=== PATIENT | female | born 2000 | race Hispanic/Latino ===

== ENCOUNTER 2022-12-30 14:00 | Emergency (ER) | payer OTHER ==
--- OUTSIDE RECORDS SUMMARY | 2022-12-30 14:03 | XMS REPORT | Continuity of Care Document ---
:2000 Author Organization [facility] t Address [address] [place] [address] Care Team Providers Name Role Phone Unavailable Unavailable Unavailable Problems This patient has no known problems. Allergies, Adverse Reactions, Alerts This patient has no known allergies or adverse reactions. Medications This patient has no known medications. Procedures This patient has no known procedures. Encounters Start End Encounter Admission Attending Care Care Encounter Source Date/Time Date/Time Type Type Clinicians Facility Department ID 2022-11-28 2022-11-28 Outpatient [facility] 16:32:03 16:32:03 [id number] [facility] 2022-10-31 2022-10-31 Outpatient [facility] 14:11:48 14:11:48 [id number] [facility] 2022-10-12 2022-10-12 Outpatient [facility] 15:33:53 15:33:53 [id number] [facility] 2022-09-25 2022-09-25 Outpatient [facility] 16:38:32 16:38:32 [id number] [facility] 2022-07-17 2022-07-17 Outpatient [facility] Rod 16:53:16 16:53:16 [id number] [facility] Results Test Description Test Time Test Comments Results Result Comments Source HERPES SIMPLEX AB, IgM 2022-12-03 13:01:12 Test Item Value Reference Range Interpretation Comme nts HERPES SIMPLEX AB, IgM (test 0.83 INDEX SEE BELOW INTERPRETATION UNITS RANGE code = 70403) ----- ----- NEGATIVE INDEX <=0.89 EQUIVOCAL INDEX 0.90-1.09 POSITIVE INDEX >=1.10 VAGINAL PATHOGENS DNA [id number] 17:00:01 Test Item Value Reference Range Interpretation Comments LYNNE SPECIES POSITIVE NEGATIVE A (test code = ) G. VAGINALIS POSITIVE NEGATIVE A (test code = ) T. VAGINALIS NEGATIVE NEGATIVE Note: The BD A ffirm VPIII (test code = Microbial Ident ification ) Testis a DNA pr obe test intended for us e in the detectionand id entification of Lynne spec ies, Gardnerellavagi nalis and Trichomonas vag inalis nucleic acid. CT/NG, NAAT, [id number] 14:07:37 Test Item Value Reference Range Interpretation Comments CHLAMYDIA, NAAT, NEGATIVE NEGATIVE Testing is performed with URINE (test code WatertronixAS 6800/8800 = 33323) systems usingre al-time polymerase lisa n reaction (PCR) method. A negative result does not exclude low level infection , specimensamplin g error, or collection erro r. GONORRHEA, NAAT, NEGATIVE NEGATIVE Testing is performed with URINE (test code WatertronixAS 6800/8800 = 02574) systems usingre al-time polymerase lisa n reaction (PCR) method. A negative result does not exclude low level infection , specimensamplin g error, or collection erro r. HIV 1/2 4TH GEN, RFLX [id number] 05:09:58 Test Item Value Reference Range Interpretation Comments HIV 1/2 4TH GEN, RFLX CONF (test NON-REACTIVE NON-REACTIVE code = 3514) HERPES SIMPLEX 1/2 AB, IgG [id number] 05:09:58 Test Item Value Reference Range Interpretation Comments HERPES SIMPLEX 1 29.000 INDEX SEE BELOW H INTERPRETA TION UNITS AB, IgG (test RANGE -------- ------ code = 19860) ----- ----- NO N-REACTIVE INDEX <1.000 RE ACTIVE INDEX >=1.00 0 HERPES SIMPLEX 2 0.087 INDEX SEE BELOW INTERPRETA TION UNITS AB, IgG (test RANGE -------- ------ code = 96756) ----- ----- NO N-REACTIVE INDEX <1.000 RE ACTIVE INDEX >=1.00 0 UNLESS OTHERWISE INDIC ATED, ALL TESTING PERFORM ED AT CLINICAL PATHOL [facility] [employer], [facility]. [address] [place] [id number] LABORATORY DIRE CTOR: CLINT HARLEY M.D. CLIA NUMBER [id number] [facility] [place] [id number] HEPATITIS PANEL, [id number] 05:09:58 Test Item Value Reference Range Interpretation Comments HEPATITIS A IgM (test NON-REACTIVE NON-REACTIVE code = 27769) HEPATITIS B CORE IgM NON-REACTIVE NON-REACTIVE (test code = 4644) HEPATITIS B SURF AG NON-REACTIVE NON-REACTIVE (test code = 2739) HEPATITIS C ANTIBODY NON-REACTIVE NON-REACTIVE (test code = 4675) INTERPRETATION (NOTE) Hepatitis A HEPATITIS A: (test code sero logy shows no = 2552) evidence of acu te hepatitis A. INTERPRETATION (NOTE) Hepatitis B HEPATITIS B: (test code sero logy shows no = 10329) evidence of acu te hepatitis B and no indication of exposure to hepatitis B vir us in the previous casimiro eight months. INTERPRETATION (NOTE) Hepatitis C HEPATITIS C: (test code sero logy shows no = 73697) evidence of exposure to hepatitisC viru s at this time. I t can take up to 12 months after exposure tothe hepatitis C vir us for antibodies to become detectab le in the blood in certain patient s. [id number] 04:00:49 Test Item Value Reference Range Interpretation Comments RPR RESULT (test code = NON-REACTIVE NON-REACTIVE 3501) RPR TITER (test code = 3500) NOT INDIC. TITER NOT INDIC.
[2022-12-30] MEDS ORDERED: IBUPROFEN 200 MG TAB PO ONE (14:30)
--- NOTE | 2022-12-30 15:44 | EDPHYS ---
Physician Documentation [facility] Name: Cori Freedman Age: 22 yrs Sex: Female : 2000 Arrival Date: 12/30/2022 Time: 14:00 Bed 13 Private MD: ED Physician David Tavarez HPI: 12/30 15:39 This 22 yrs old Female presents to ER via Ambulatory with complaints of Foot wendie Pain. 15:39 The patient presents with decreased range of motion, pain. wendie Historical: - Allergies: 14:17 No Known Allergies; hb - Home Meds: 14:17 None [Active]; hb - PMHx: 14:17 None; hb - PSHx: 14:17 None; hb - Immunization history:: Adult Immunizations up to date. - Social history:: Smoking status: Patient denies any tobacco usage or history of. ROS: 15:39 Constitutional: Negative for fever, chills, and weight loss, Eyes: Negative for injury, wendie pain, redness, and discharge, ENT: Negative for injury, pain, and discharge, Neck: Negative for injury, pain, and swelling, Cardiovascular: Negative for chest pain, palpitations, and edema, Respiratory: Negative for shortness of breath, cough, wheezing, and pleuritic chest pain, Abdomen/GI: Negative for abdominal pain, nausea, vomiting, diarrhea, and constipation, Back: Negative for injury and pain, : Negative for injury, bleeding, discharge, and swelling, Skin: Negative for injury, rash, and discoloration, Neuro: Negative for headache, weakness, numbness, tingling, and seizure, Psych: Negative for depression, anxiety, suicide ideation, homicidal ideation, and hallucinations, Allergy/Immunology: Negative for hives, rash, and allergies, Endocrine: Negative for neck swelling, polydipsia, polyuria, polyphagia, and marked weight changes, Hematologic/Lymphatic: Negative for swollen nodes, abnormal bleeding, and unusual bruising. 15:39 MS/extremity: Positive for pain, tenderness, of the lateral aspect of left calf, left lateral ankle, lateral aspect of left foot, left parker, anterior aspect of left ankle and dorsum of left foot. Exam: 15:39 Constitutional: This is a well developed, well nourished patient who is awake, alert, wendie and in no acute distress. Head/Face: Normocephalic, atraumatic. Eyes: Pupils equal round and reactive to light, extra-ocular motions intact. Lids and lashes normal. Conjunctiva and sclera are non-icteric and not injected. Cornea within normal limits. Periorbital areas with no swelling, redness, or edema. ENT: Nares patent. No nasal discharge, no septal abnormalities noted. Tympanic membranes are normal and external auditory canals are clear. Oropharynx with no redness, swelling, or masses, exudates, or evidence of obstruction, uvula midline. Mucous membranes moist. Neck: Trachea midline, no thyromegaly or masses palpated, and no cervical lymphadenopathy. Supple, full range of motion without nuchal rigidity, or vertebral point tenderness. No Meningismus. Chest/axilla: Normal chest wall appearance and motion. Nontender with no deformity. No lesions are appreciated. Cardiovascular: Regular rate and rhythm with a normal S1 and S2. No gallops, murmurs, or rubs. Normal PMI, no JVD. No pulse deficits. Respiratory: Lungs have equal breath sounds bilaterally, clear to auscultation and percussion. No rales, rhonchi or wheezes noted. No increased work of breathing, no retractions or nasal flaring. Abdomen/GI: Soft, non-tender, with normal bowel sounds. No distension or tympany. No guarding or rebound. No evidence of tenderness throughout. Back: No spinal tenderness. No costovertebral tenderness. Full range of motion. Skin: Warm, dry with normal turgor. Normal color with no rashes, no lesions, and no evidence of cellulitis. Neuro: Awake and alert, GCS 15, oriented to person, place, time, and situation. Cranial nerves II-XII grossly intact. Motor strength 5/5 in all extremities. Sensory grossly intact. Cerebellar exam normal. Normal gait. Psych: Awake, alert, with orientation to person, place and time. Behavior, mood, and affect are within normal limits. 15:39 Musculoskeletal/extremity: ROM: full active range of motion, full passive range of motion, Circulation is intact in all extremities. Sensation intact. Compartment Syndrome exam of affected extremity: is normal. DVT Exam: no swelling, negative Homans' sign noted on exam, no appreciated bluish discoloration, no erythema, no increased warmth, pain, tenderness. 15:45 Musculoskeletal/extremity: DVT Exam: [facility] Vital Signs: 14:15 BP 110 / 75; Pulse 72; Resp 16; Temp 98.3; Pulse Ox 97% on R/A; Weight 52.16 kg; Height hb 5 ft. 1 in. ; Pain 8/10; 15:15 BP 109 / 75; Pulse 59; Resp 18; Pulse Ox 100% on R/A; eh3 16:15 BP 100 / 75; Pulse 64; Resp 18; Pulse Ox 98% on R/A; eh3 14:15 Body Mass Index 21.73 (52.16 kg, 154.94 cm) hb 14:15 Pain Scale: Adult hb MDM: 14:07 Patient medically screened. [facility] 15:41 Differential diagnosis: closed fracture, contusion, tendonitis, fracture, sprain. Data [facility] reviewed: vital signs, nurses notes, radiologic studies. Consideration of Admission/Observation Escalation of care including admission/observation considered. I considered the following discharge prescriptions or medication management in the emergency department Medications were administered in the Emergency Department. See MAR. Test considered but Not performed: Labs: no labs. Ultrasound no doppler. Historians other than the Patient: Parent: mom. Care significantly affected by the following chronic conditions: none. Counseling: I had a detailed discussion with the patient and/or guardian regarding: the historical points, exam findings, and any diagnostic results supporting the discharge/admit diagnosis, radiology results, the need for outpatient follow up, a orthopedic surgeon. 12/30 14:16 Order name: Foot Left 3 View XRAY [facility] 12/30 14:16 Order name: Ankle Left 3 View XRAY [facility] 12/30 15:16 Order name: Tib Fib Left XRAY [facility] 12/30 14:17 Order name: Ice pack; Complete Time: 14:20 [facility] 12/30 15:16 Order name: Walking boot; Complete Time: 15:20 [facility] Administered Medications: 14:26 Drug: Ibuprofen PO 600 mg Route: PO; eh3 15:24 Follow up: Response: No adverse reaction eh3 Disposition Summary: 12/30/22 15:43 Discharge Ordered Location: Home wendie Problem: new wendie Symptoms: have improved wendie Condition: Stable wendie Diagnosis - Sprain of ankle wendie - Sprain of calcaneofibular ligament of left ankle wendie - Pain in left lower leg wendie Followup: wendie - With: Private Physician - When: 2 - 3 days - Reason: Recheck today's complaints, Continuance of care, Re-evaluation by your physician Followup: wendie - With: Lazaro Bullock MD - When: 2 - 3 days - Reason: Recheck today's complaints, Re-evaluation by your physician Discharge Instructions: - Discharge Summary Sheet wendie - Ankle Sprain wendie - Musculoskeletal Pain wendie - Ankle Sprain, Dwel-jx-Enky wendie - Ankle Pain [facility] Forms: - Medication Reconciliation Form [facility] - Thank You Letter wendie - Antibiotic Education wendie - Prescription Opioid Use [facility] - Patient Portal Instructions [facility] Prescriptions: - Motrin IB 200 mg Oral Tablet - take 2 tablets by ORAL route every 6 hours As needed as needed with food; 30 wendie tablet; Refills: 0, Product Selection Permitted Signatures: Dispatcher [employer] EDDavid George MD MD cha Baxter, Heather, RN RN Cinthia Mendosa RN RN eh3
--- NOTE | 2022-12-30 15:44 | ER ---
Nurse's Notes [facility] Name: Cori Freedman Age: 22 yrs Sex: Female : 2000 Arrival Date: 12/30/2022 Time: 14:00 Bed 13 Private MD: Diagnosis: Sprain of ankle;Sprain of calcaneofibular ligament of left ankle;Pain in left lower leg Presentation: 12/30 14:15 Chief complaint: Rolled left ankle while wearing heels 2 weeks ago, c/o left ankle pain hb 8/10. Coronavirus screen: At this time, the client does not indicate any symptoms associated with coronavirus-19. Ebola Screen: No symptoms or risks identified at this time. Initial Sepsis Screen: Does the patient meet any 2 criteria? No. Patient's initial sepsis screen is negative. Does the patient have a suspected source of infection? No. Patient's initial sepsis screen is negative. Risk Assessment: Do you want to hurt yourself or someone else? Patient reports no desire to harm self or others. Onset of symptoms was December 16, 2022. 14:15 Method Of Arrival: Ambulatory hb 14:15 Acuity: MARILU 4 hb Historical: - Allergies: 14:17 No Known Allergies; hb - Home Meds: 14:17 None [Active]; hb - PMHx: 14:17 None; hb - PSHx: 14:17 None; hb - Immunization history:: Adult Immunizations up to date. - Social history:: Smoking status: Patient denies any tobacco usage or history of. Screenin:15 [facility] ED Fall Risk Assessment (Adult) Score/Fall Risk Level 0 - 2 = Low Risk. Abuse eh3 screen: Denies threats or abuse. Denies injuries from another. Nutritional screening: No deficits noted. Tuberculosis screening: No symptoms or risk factors identified. Assessment: 14:15 General: Appears in no apparent distress. uncomfortable, Behavior is calm, cooperative, eh3 appropriate for age. Pain: Complains of pain in left ankle. Neuro: Level of Consciousness is awake, alert, obeys commands, Oriented to person, place, time, situation. Cardiovascular: Capillary refill < 3 seconds Patient's skin is warm and dry. Respiratory: Airway is patent Respiratory effort is even, unlabored. GI: Abdomen is round non-distended. Derm: Skin is healthy with good turgor, Bruising that is dark purple, yellow, on left leg. Musculoskeletal: Circulation, motion, and sensation intact. 15:15 Reassessment: Patient appears in no apparent distress at this time. Patient and/or 3 family updated on plan of care and expected duration. Pain level reassessed. Patient is alert, oriented x 3, equal unlabored respirations, skin warm/dry/pink. 15:45 Reassessment: Pt discharged pending tib fib xray. eh3 16:15 Reassessment: Patient appears in no apparent distress at this time. Patient and/or 3 family updated on plan of care and expected duration. Pain level reassessed. Patient is alert, oriented x 3, equal unlabored respirations, skin warm/dry/pink. Vital Signs: 14:15 BP 110 / 75; Pulse 72; Resp 16; Temp 98.3; Pulse Ox 97% on R/A; Weight 52.16 kg; Height hb 5 ft. 1 in. ; Pain 8/10; 15:15 BP 109 / 75; Pulse 59; Resp 18; Pulse Ox 100% on R/A; eh3 16:15 BP 100 / 75; Pulse 64; Resp 18; Pulse Ox 98% on R/A; eh3 14:15 Body Mass Index 21.73 (52.16 kg, 154.94 cm) hb 14:15 Pain Scale: Adult hb ED Course: 14:03 Patient arrived in ED. ts1 14:04 David Tavarez MD is Attending Physician. wendie 14:15 Patient has correct armband on for positive identification. Bed in low position. Call [facility] light in reach. Provided Education on: N/A. Pulse ox on. NIBP on. Door closed. Noise minimized. Lights dimmed. Warm blanket given. Ice pack to injury. 14:17 Triage completed. hb 14:17 Arm band placed on. hb 14:19 Cinthia Mendosa, RADHA is Primary Nurse. eh3 15:09 Foot Left 3 View XRAY In Process Unspecified. EDMS 15:09 Ankle Left 3 View XRAY In Process Unspecified. EDMS 15:42 Lazaro Bullock MD is Referral Physician. wendie 16:39 Tib Fib Left XRAY In Process Unspecified. EDMS 16:46 3D boot applied to left foot. eh3 16:46 No provider procedures requiring assistance completed. Patient did not have IV access eh3 during this emergency room visit. Administered Medications: 14:26 Drug: Ibuprofen PO 600 mg Route: PO; 3 15:24 Follow up: Response: No adverse reaction 3 Medication: 16:46 VIS not applicable for this client. eh3 Outcome: 15:43 Discharge ordered by . wendie 16:47 Discharged to home ambulatory. 3 16:47 Condition: stable 16:47 Discharge instructions given to patient, Instructed on discharge instructions, follow up and referral plans. medication usage, Demonstrated understanding of instructions, follow-up care, medications, Prescriptions given X 1. 16:47 Patient left the ED. 3 Signatures: Dispatcher [employer] EDMS David Tavarez MD MD cha Baxter, Heather, RN RN Cinthia Mendosa RN RN eh3 Rose Marie Castillo PAS PAS ts1 Corrections: (The following items were deleted from the chart) 15:46 15:44 3D boot applied to left foot. 3 eh3
--- NOTE | 2022-12-30 15:45 | RAD REPORT ---
EXAM DESCRIPTION: RAD - Ankle Left 3 View - 12/30/2022 3:06 pm CLINICAL HISTORY: PAIN COMPARISON: No comparisons TECHNIQUE: Left ankle, 3 views. FINDINGS: No fracture, dislocation or periosteal reaction. No joint effusion seen. No joint space na rrowing. No soft tissue abnormality. IMPRESSION: Negative left ankle radiographs.
--- NOTE | 2022-12-30 15:48 | RAD REPORT ---
EXAM DESCRIPTION: RAD - Foot Left 3 View - 12/30/2022 3:06 pm CLINICAL HISTORY: PAIN COMPARISON: No comparisons TECHNIQUE: Left foot, 3 views. FINDINGS: No fracture, dislocation or periosteal reaction. No air or foreign body in the soft tissues. IMPRESSION: Negative left foot radiographs.
[2022-12-30 16:58] VITALS: TEMP 98.3
--- NOTE | 2022-12-30 16:59 | RAD REPORT ---
EXAM DESCRIPTION: RAD - Tib Fib Left - 12/30/2022 4:37 pm CLINICAL HISTORY: PAIN COMPARISON: No comparisons TECHNIQUE: Left tibia and fibula, 2 views. FINDINGS: No fracture is identified. There is no dislocation or periosteal reaction noted. Epiphyses and growth plates are normal in appea bennie. No foreign body or other soft tissue abnormality. IMPRESSION: Negative left tibia & fibula examination.
[2022-12-30 17:09] VITALS: BP 100/75; O2SAT 98
== END 2022-12-30 16:47 | disposition home or self-care (01) ==
LOC: ER 14:00
DX: S93.412A Sprain of calcaneofibular ligament of left ankle, initial encounter (principal)
CPT/HCPCS: 99284